=== PATIENT | male | born 1985 | race Caucasian/White ===

== ENCOUNTER 2017-03-28 03:58 | Emergency (ER) | payer SELFPAY ==
[~2017-03-28] VITALS: Ht 175.3 cm; Wt 81.6 kg
--- NOTE | 2017-03-28 04:13 | NUR ---
BB SELF; "I FEEL MY HEART RACE X 30 MIN [employer]" PT AOX3 RR EVEN AND UNLABORED. NO SOB NOTED. DENIES CP. NON NVD AT THIS TIME. PT NOT DIAPHORETIC. PT GOWNED AND PLACED ON MONITOR WAITING FOR MD COSTA.
--- NOTE | 2017-03-28 04:17 | NUR ---
DR. CORRAL AT BEDSIDE FOR EVAL.
--- NOTE | 2017-03-28 04:49 | NUR ---
LABS DRAWN, CALLED LAB FOR BOTTOM STEEP TENDER.
--- NOTE | 2017-03-28 04:52 | NUR ---
RADIOLOGY AT BEDSIDE FOR CXR
[2017-03-28 05:04] LABS: BASOPHILS % (AUTO) 0.3 % (0.0-2.0); EOSINOPHILS # (AUTO) 0.1 /CMM (0.0-0.7); EOSINOPHILS % (AUTO) 1.8 % (0.0-6.0); HEMATOCRIT 47 % (39-51); HEMOGLOBIN 16.7 g/dL (13.5-17.5); LYMPHOCYTES # (AUTO) 2.2 /CMM (0.8-4.8); LYMPHOCYTES % (AUTO) 28.5 % (20.0-44.0); MEAN CORPUSCULAR HEMOGLOBIN 29 PG (26.0-33.0); MEAN CORPUSCULAR HGB CONC 36 g/dl (31.0-36.0); MEAN CORPUSCULAR VOLUME 82 fL (80-96); MONOCYTES # (AUTO) 0.8 /CMM (0.1-1.30); MONOCYTES % (AUTO) 9.6 % (2.0-12.0); NEUTROPHILS # (AUTO) 4.7 /CMM (1.8-8.9); NEUTROPHILS % (AUTO) 59.8 % (43.0-81.0); PLATELET COUNT (AUTO) 195 /CMM (150-450); RDW COEFFICIENT OF VARIATION 13.3 (11.5-15.0); RED BLOOD CELL COUNT(AUTO) 5.74 MIL/uL (4.5-6.0); WHITE BLOOD COUNT (AUTO) 7.9 K/uL (4.3-11.0)
[2017-03-28 05:13] LABS: CALCIUM, SERUM 9.4 mg/dL (8.5-10.1); CARBON DIOXIDE 30 mmol/L (21-32); CHLORIDE 101 mmol/L (98-107); GLUCOSE 99 mg/dL (74-106); POTASSIUM 3.7 mmol/L (3.5-5.1); SODIUM SERUM 143 mmol/L (136-145); UREA NITROGEN, BLOOD 14 mg/dL (7-18)
[2017-03-28 05:21] LABS: TROPONIN I < 0.017 ng/mL (0.00-0.056)
[2017-03-28 05:27] LABS: ALANINE AMINOTRANSFERASE 62 U/L (12-78); ALBUMIN 4.9 g/dL (3.4-5.0); ALKALINE PHOSPHATASE 77 U/L (46-116); ASPARTATE AMINOTRANSFERASE 35 U/L (15-37); BILIRUBIN,TOTAL 0.4 mg/dL (0.2-1.0); TOTAL PROTEIN, SERUM 8.6 g/dL (6.4-8.2)
[2017-03-28 05:29] LABS: B-TYPE NATRIURETIC PEPTIDE 6 PG/ML (0-125)
[2017-03-28 06:03] VITALS: BP 138/80
== END 2017-03-28 06:06 | disposition home or self-care (01) ==
LOC: ER 04:00
DX: R00.2 Palpitations (principal); F41.9 Anxiety disorder, unspecified; Z88.6 Allergy status to analgesic agent
CPT/HCPCS: 36415; 71045-TC; 80048-TC; 80076-TC; 83880; 84484-TC; 85025-TC; A4606; Z7610